=== PATIENT | male | born 1960 | race Caucasian/White ===

== ENCOUNTER → 2017-07-11 | Outpatient (CLI) | payer MEDICAID ==
[~2017-07-11] MED LIST: ALLOPURINOL300 M1 PO; CEPHALEXIN500 MG PO; GLIPIZIDE 5MG TA5 MG PO; KEFLEX 500MG.500 MG PO; MELOXICAM15 MG PO; METFORMIN HCL1000 MG PO; SILVADENE CREAM50 GM TP; VALSARTAN160 M1 PO; ZANTAC 150150 MG PO
[2017-07-11 11:21] LABS: LYMPH # 1.2 K/mm3 (0.7-4.5); LYMPH % 15.4 % (10-50)
[2017-07-11 11:25] LABS: HEMOGLOBIN 16.9 g/dL (14.1-18.0)
[2017-07-11 14:20] LABS: BUN 22 mg/dL (7-18)
[2017-07-11 14:36] LABS: GFR (ESTIMATED) 45 ML/MIN (>60)
[2017-07-12 09:37] LABS: Vitamin B12 >2000 pg/mL (211-946)
[2017-07-12 12:37] LABS: Creatinine, Urine 81.1 mg/dL (Not Estab.); Microalbumin, Urine 17.8 ug/mL (Not Estab.)
== END ==
LOC: LAB 10:09
PROVIDERS: Internal Medicine Adolescent Medicine
DX: E11.69 Type 2 diabetes mellitus with other specified complication (principal); E53.8 Deficiency of other specified B group vitamins